=== PATIENT | male | born 1985 ===

== ENCOUNTER 2018-05-29 08:00 | Emergency (ER) | payer OTHER ==
[2018-05-29 08:12] VITALS: PULSE 74
[2018-05-29] MEDS ORDERED: Tdap Vaccine 0.5 ml Vial (10-64 yrs) IM ONE ×2 (08:28→09:11)
--- NOTE | 2018-05-29 08:28 | ED PDOC ---
HPI: General Adult Time Seen by Provider: 05/29/18 08:04 Chief Complaint (Nursing): Bite Chief Complaint (Provider): Dog bite History Per: Patient History/Exam Limitations: no limitations Onset/Duration Of Symptoms: Days (today) Additional Complaint(s): Pt. playing with girlfriend dog and it accidentally bit his face/lip area. Has pain, but no numbness, tingles, weakness. Has a scratch to the left index by dog teeth and it does not hurt. Able to move finger with no issues. No injury elsewhere. Dog has shots utd. Watched at home with his girlfriend. Past Medical History Reviewed: Nursing Documentation, Vital Signs Vital Signs: Last Vital Signs Temp 98.6 F 05/29/18 08:07 Pulse 74 05/29/18 08:07 Resp 20 05/29/18 08:07 BP 128/76 05/29/18 08:07 Pulse Ox 98 05/29/18 08:49 - Medical History PMH: No Chronic Diseases - Surgical History Surgical History: No Surg Hx - Family History Family History: States: Unknown Family Hx - Living Arrangements Living Arrangements: With Family - Social History Current smoker - smoking cessation education provided: No - Immunization History Hx Tetanus Toxoid Vaccination: No Hx Influenza Vaccination: No Hx Pneumococcal Vaccination: No - Home Medications Home Medications: Ambulatory Orders Medication Instructions Recorded Amoxicillin/Clavulanate [Augmentin 1 tab PO BID 7 Days tab 05/29/18 875 MG-125 MG] - Allergies Allergies/Adverse Reactions: Allergies Allergy/AdvReac Type Severity Reaction Status Date / Time No Known Allergies Allergy Verified 05/29/18 08:06 Review of Systems Constitutional: Negative for: Weakness Eyes: Negative for: Vision Change ENT: Negative for: Nose Pain, Nose Discharge, Nose Congestion Cardiovascular: Negative for: Chest Pain Respiratory: Negative for: Shortness of Breath Musculoskeletal: Negative for: Shoulder Pain, Arm Pain, Hand Pain, Leg Pain Neurological: Negative for: Weakness, Numbness Physical Exam - Reviewed Nursing Documentation Reviewed: Yes Vital Signs Reviewed: Yes - Physical Exam Head Exam: Positive for: ATRAUMATIC, NORMAL INSPECTION, NORMOCEPHALIC Eye Exam: Positive for: EOMI, Normal appearance, PERRL ENT: Positive for: Other (laceration: R upper lip with zig zag type avulsion going through vermilion border; no sensory defits and no laceration in mucosa of mouth.). Negative for: Nasal Congestion Neck: Positive for: Normal, Painless ROM Cardiovascular/Chest: Positive for: Regular Rate, Rhythm Respiratory: Positive for: CNT, Normal Breath Sounds Pulses-Radial (L): 2+ Extremity: Positive for: Other (left dorsal finger index at dip with small superficial abrasion 0.5 cm; no tenderness; full ROM.) Neurologic/Psych: Positive for: Alert, assistant superintendent II-XII, Oriented. Negative for: Motor/Sensory Deficits - ECG O2 Sat by Pulse Oximetry: 98 Pulse Ox Interpretation: Normal - Progress ED Course And Treament: 845: Spoke with Dr. Meza. Well come see pt. for repair. 1105: Stable. Dr. Meza saw pt. and sutured laceration. Augmentin on dc. AAOx3. Tolerated PO. No pain. Disposition - Clinical Impression Clinical Impression: Animal bite wound - Patient ED Disposition Is Patient to be Admitted: Yes Counseled Patient/Family Regarding: Studies Performed, Diagnosis - Disposition Referrals: Mk Meza MD [Medical Doctor] - 05/30/18 Disposition: Routine/Home Disposition Time: 11:07 Condition: STABLE Additional Instructions: Return if not better in 3 days. Prescriptions: Amoxicillin/Clavulanate [Augmentin 875 MG-125 MG] 1 tab PO BID 7 Days tab Instructions: Animal Bites (DC) Forms: [employer] ([place]), [facility] ED School/Work Excuse
[2018-05-29] MEDS ORDERED: Povidone Iodine Oint 10% Foilpak UD ONE (08:39)
[2018-05-29 12:32] VITALS: BP 122/70; RESP 15; TEMP 98.1; O2SAT 100
--- NOTE | 2018-05-30 23:55 | OP ---
PROCEDURE DATE: 05/29/2018 SURGEON: Mk Meza MD PREOPERATIVE DIAGNOSES: 1. Dog bite. 2. 3 cm right upper lateral lip laceration crossing the [place] border. POSTOPERATIVE DIAGNOSES: 1. Dog bite. 2. A 2 cm right upper lateral lip laceration crossing the [place] border. PROCEDURE PERFORMED: Intermediate repair of 2 cm right upper lip laceration crossing the [place] border. ANESTHESIA: Regional. Right infraorbital nerve block. INDICATIONS: This is a healthy 32-year-old male who was bitten by his dog, who presented to the emergency room with a total of 2 cm Z-shaped jagged laceration of the right upper filtrum crossing the upper lip at the vermilion border. I was consulted as a plastic surgeon, and I came in to evaluate and treat the patient. PHYSICAL EXAMINATION: There is a 2 cm Z-shaped laceration crossing the [place] border. The underlying muscle was not involved. There are no other intraoral lacerations. His occlusion was normal. I explained to the patient the risk of closing a dog bite since this was a significant wound, he would benefit from closure after irrigation and in conjunction with oral antibiotics. I told him the risk of infection, but if he left this wound open, there will be significant scarring. He understood this and wished to proceed with suture repair. In accordance with the [employer], I explained to the patient that there will be an additional fee from my services since he did not have insurance was discussed and agreed upon with the patient. DESCRIPTION OF PROCEDURE: As follows: 1% lidocaine was in a right infraorbital nerve block. After allowing sufficient time for the anesthetic to take effect, the wound was thoroughly irrigated with normal saline diluted Betadine. Area was prepped and draped in the usual clean and sterile manner. I started the operation by debriding some of the skin edges with scissors technique. The underlying muscle was uninvolved. I used a 5-0 Monocryl to line up and approximate the deep dermis. The two ____ in interrupted fashion. I then closed the total of 2 cm skin with a combination of 4-0 and 5-0 chromic sutures in an interrupted fashion. After doing this, the wound edges were nicely aligned as well as the vermilion border. The patient tolerated the procedure well and eventually discharged home from the emergency room in stable condition. Postop wound care, limitation of physical activity, the fact that there will be a scar, the prognosis which is unknown, the need to take oral antibiotics and follow up with me, and signs of infections to look out or any need to contact me early with any infections were discussed and all questions were answered. Mk Meza MD
== END 2018-05-29 11:40 | disposition home or self-care (01) ==
LOC: H.ER 08:00
DX: S01.551A Open bite of lip, initial encounter (principal); W54.0XXA Bitten by dog, initial encounter; Y92.89 Other specified places as the place of occurrence of the external cause